=== PATIENT | female | born 1975 | race Caucasian/White ===

== ENCOUNTER 2019-01-23 18:06 | Emergency (ER) | payer SELFPAY ==
[2019-01-23 18:07] VITALS: BP 144/96; PULSE 86; RESP 16; TEMP 36.8; O2SAT 100; BMI 30.9
--- NOTE | 2019-01-23 18:43 | CT_ITS ---
HISTORY:LEFT SIDE ABD PAIN WITH NAUSEA X 5 MONTHS, ELEVATED WBC, HX PT HYSTERECTOMY DUE TO CERVICAL CA, GB, , HTN, ENLARGED HEART LEFT SIDE ABD PAIN WITH NAUSEA X 5 MONTHS, ELEVATED WBC, HX PT HYSTERECTOMY DUE TO CERVICAL CA, GB, , HTN, ENLARGED HEART TECHNIQUE: Helically acquired images were obtained of the abdomen and pelvis following IV contrast. A radiation dose optimization technique was used for this scan. IV Contrast dosage and agent:100ML Isovue 300 Oral contrast: Yes COMPARISON: None FINDINGS: # of images incl. paperwork: [id number] LOWER CHEST: Mild cardiomegaly. There is dependent atelectasis in the lung bases LIVER: Homogeneous. No focal mass. GALLBLADDER AND BILIARY TREE: Cholecystectomy there is intrahepatic and extra hepatic ductal dilatation which can be seen with a prior cholecystectomy KIDNEYS AND URETERS: Normal renal size and position. There is no hydronephrosis. ADRENAL GLANDS: Non-enlarged. SPLEEN: Normal size without focal cystic or solid mass. PANCREAS: No focal cystic or solid mass. BOWEL: Radiopaque linear densities are seen within the stomach. Correlate clinically for oral ingestion. The small bowel is unremarkable The descending colon and sigmoid colon are poorly distended however I cannot exclude wall thickening. This extends through the rectum. Correlate clinically for colitis. LYMPH NODES: No enlarged mesenteric or retroperitoneal lymph nodes. PERITONEUM: No ascites or free air. No other fluid collection. VESSELS: Aorta is non-dilated. URINARY BLADDER: Incompletely distended, otherwise grossly unremarkable. REPRODUCTIVE ORGANS: Hysterectomy ABDOMINAL WALL: No discrete abdominal or pelvic wall hernia observed. BONES: Degenerative changes seen greatest at the level of T9-10 with Modic type III changes at the endplates CT/Abdomen/Pelvis WITH Contrast IMPRESSION: Mild cardiomegaly Dependent atelectasis in the lung bases Cholecystectomy Radiopaque density seen within the stomach. Correlate clinically for recent ingestion There is wall thickening seen within the descending colon extending through the rectum. This portion of the bowel is incompletely distended however. Correlate clinically for colitis Individualized dose optimization techniques were used for this CT. at 2104 Reported and signed by: Olivia Peters DO Electronically Signed: Olivia Peters DO at 21:03 EDT Tel , Service support ,
--- NOTE | 2019-01-23 18:46 | ED.DCSUM_ITS ---
- ER Visit Summary Date of Service: 01/23/19 Chief Complaint: Left flank pain History of Present Illness: The patient is a 43 F presenting with left flank pain. Patient states this has been ongoing for the past several months. She states the pain is worsening and not improving. She denies fever. She has nausea with no vomiting. She has had intermittent constipation. She did have a bowel movement today. History of previous cholecystectomy, hysterectomy, C- section. Denies other complaints. Physical Examination: Vitals are stable. Patient is afebrile. Alert no acute distress. HEENT exam is unremarkable. Neck is supple. Lungs are clear and equal bilaterally. Heart is regular rate and rhythm. Abdomen is soft left lower quadrant tenderness with no rebound or guarding Extremities are unremarkable. Skin is warm and dry. Remainder of exam is unremarkable. Emergency Department Course and Treatment: Patient was given morphine, Zofran IV. CBC shows white count 12.2. Chemistries unremarkable. Liver lipase are normal. Urinalysis shows 10-25 white blood cells, 1+ bacteria, positive trichomonas. CT abdomen pelvis shows mild cardiomegaly. Dependent atelectasis in the lung bases. Cholecystectomy. Radiopaque density seen within the stomach. Correlate clinically for recent ingestion. There is wall thickening seen within the descending colon extending through the rectum. This portion of the bowel is incompletely distended however. Correlate clinically for colitis. On reevaluation, patient is resting comfortably. Patient was given Flagyl for trichomonas. She was given prescription for Cipro and Flagyl for colitis. She is advised to follow-up with Dr. Gan director of health education for no doc. Advised to return to ED if worsening complaints. Disposition: Discharge home Impression: Abdominal pain, colitis, UTI, trichomonas This note was generated with [employer] dictation software. It may contain incorrect words, spelling, and punctuation that were not noted in review of the chart p rior to signing ED Disposition - Plan for ED Patient: Instructions: ED Abdominal Pain Unkn Cause, ED UTI Cystitis Female Prescriptions: metroNIDAZOLE [Flagyl] 500 mg PO Q8H #21 tablet Ciprofloxacin [Cipro] 500 mg PO BID #14 tablet Referrals: Dave Gan III, MD [STAFF PHYSICIAN] - Kary Chery [NON-STAFF] -
[2019-01-23 19:41] LABS: Mucous, Urine 0 SEEN /hpf (<or=2+)
[2019-01-23 19:46] LABS: Absolute Lymphocyte Count 3.14 X10^3/ul (0.83-4.51); Basophil# 0.02 X10^3/uL; Basophil% 0.2 % (0-1); Eosinophil# 0.28 X10^3/uL; Eosinophils% 2.3 % (0-5); Hemoglobin 16.1 g/dl (12.0-15.0); Lymphocyte # 3.14 X10^3/ul (4.0); Lymphocyte % 25.7 % (19-41); Mean Corp Hgb Conc 32.9 g/gl (32-36); Mean Corpuscular Hgb 29.7 pg (27.0-32.0); Mean Corpuscular Volume 90.4 fL (81-99); Mean Platelet Vol. 10.5 fl (6.2-12.0); Monocyte# 0.73 X10^3/uL; Neutrophil # 8.02 X10^3/uL (2.7-7.7); Neutrophil % 65.6 % (47-70); Platelet Count 300 K/mm3 (150-450); RBC Distribution Width CV 13.9 % (11.6-14.6); RBC Distribution Width SD 45.7 fl (35.1-43.9); Red Blood Count 5.42 M/mm3 (4.2-5.4); White Blood Count 12.2 K/mm3 (4.4-11.0)
[2019-01-23 19:47] LABS: Color, Urine Yellow (Yellow); Glucose, Dipstick Normal (Normal); Ketone-Dipstick 5 mg/dl (Negative); Leukocyte Esterase-Dipstick 100 /ul (Negative); Nitrite-Dipstick Negative (Negative); Occult Blood-Urine 10 /ul (Negative); POSITIVE COUNT NO; POSITIVE DIFFERENTIAL NO; POSITIVE MORPHOLOGY NO; Protein-Dipstick 15 mg/dl (Negative); Urine Bilirubin Dipstick Negative (Negative); Urine Clarity Cloudy (Clear); Urine Urobilinogen 1 mg/dl (Normal)
[2019-01-23] MEDS: Morphine 4 MG/ML Syringe IV (19:54)
[2019-01-23] MEDS: Ondansetron 4 MG/2 ML Vial IV (19:54)
[2019-01-23 20:02] LABS: AST(SGOT) 20 U/L (15-37); Alanine Aminotransfer ALT/SGPT 18 U/L (13-56); Albumin, Serum 4.2 g/dL (3.2-5.0); Alkaline Phosphatase 99 U/L (45-117); Anion Gap 7 (5-15); BUN 16 mg/dL (7-18); BUN/Creat Ratio 17.6 RATIO (10-20); Calcium,Total 8.8 mg/dL (8.5-10.1); Chloride 104 mmol/L (98-107); Creatinine, Serum 0.91 mg/dL (0.55-1.02); EST Glomerular Filtration Rate 71 mL/min (>60); Est Glom Filt Rate - Afr Amer 86 mL/min (>60); Estimated Creatinine Clearance 70.25 ml/min; Globulin 4.4 g/dL (2.2-4.2); Glucose 78 mg/dL (74-106); Lipase 291 U/L (73-393); Potassium 3.7 mmol/L (3.5-5.1); Protein, Total 8.6 g/dL (6.4-8.2); Sodium Level 140 mmol/L (136-145)
[2019-01-23 20:09] LABS: White Blood Cells 10-25 SEEN /hpf (0-5)
[2019-01-23 20:12] LABS: Bacteria 1+ /hpf (None Seen); Red Blood Cells-Urine 0-5 SEEN /hpf (0-5)
[2019-01-23 20:14] LABS: Squamous Epithelial Cells - UA 0-5 SEEN /hpf (5-10)
[2019-01-23 20:16] LABS: Hyaline Cast 0-5 SEEN /lpf (0-5)
[2019-01-23 20:17] VITALS: BP 135/70; PULSE 85; RESP 14; O2SAT 97
[2019-01-23 20:17] LABS: Trichomonas 0-5 SEEN /hpf (None Seen)
--- NOTE | 2019-01-23 21:57 | ED.DEP ---
ED Disposition - Plan for ED Patient: Instructions: ED Abdominal Pain Unkn Cause, ED UTI Cystitis Female Prescriptions: metroNIDAZOLE [Flagyl] 500 mg PO Q8H #21 tablet Ciprofloxacin [Cipro] 500 mg PO BID #14 tablet Referrals: Dave Gan III, MD [STAFF PHYSICIAN] - Kary Chery [NON-STAFF] -
[2019-01-23 22:02] VITALS: BP 128/70; PULSE 89; RESP 14; O2SAT 98
[2019-01-23] MEDS: Ciprofloxacin 500 MG Tablet PO (22:16)
[2019-01-23] MEDS: metroNIDAZOLE 500 MG Tablet 2000 MG PO (22:17)
[2019-01-23 22:19] VITALS: BP 137/80; PULSE 80; RESP 14; O2SAT 98
== END 2019-01-23 22:20 | disposition home or self-care (01) ==
LOC: ED 19:11
PROVIDERS: Emergency Provider Emergency Medicine
DX: K52.9 Noninfective gastroenteritis and colitis, unspecified (principal); R10.9 Unspecified abdominal pain; N39.0 Urinary tract infection, site not specified; A59.9 Trichomoniasis, unspecified; K59.00 Constipation, unspecified; I51.7 Cardiomegaly; J98.11 Atelectasis; Z90.49 Acquired absence of other specified parts of digestive tract; Z72.0 Tobacco use
CPT/HCPCS: 74177; 80053; 81001; 83690; 85025; 96374; 96375; 99285; Q9967; A4216; J2405